=== PATIENT | female | born 1990 | race Hispanic/Latino ===

== ENCOUNTER 2018-04-05 21:04 | Emergency (ER) | payer BC ==
[2018-04-05 21:14] VITALS: RESP 16; O2SAT 99
--- NOTE | 2018-04-05 22:29 | ED PDOC ---
HPI: Chest Pain Time Seen by Provider: 04/05/18 21:30 Chief Complaint (Nursing): Chest Pain Chief Complaint (Provider): Chest Pain History Per: Patient History/Exam Limitations: no limitations Onset/Duration Of Symptoms: Days Current Symptoms Are (Timing): Still Present Additional Complaint(s): 28 year old female with no significant past medical history reports to the ED complaining of mid-sternal chest pain. Patient admits she has been on OCPs for the past 8 years and went on a road trip recently to [place] last weekend. Patient reports that pain is only present during deep inspirations. In addition , patient reports of intermittent fast heart rate. Otherwise: (-) radiation, (- ) diaphoresis, (-) dyspnea, (+) pleuritic component, (-) ripping or tearing quality, (-) positional component, (-) exertional component, (-) dizziness, (-) syncope, (-) nausea, (-) vomiting, (-) leg swelling/pain, (-) neuro deficits, (- ) fever, (-) cough, (-) history of DVT. Past Medical History Reviewed: Historical Data, Nursing Documentation, Vital Signs Vital Signs: Last Vital Signs Temp 98.4 F 04/05/18 23:48 Pulse 87 04/05/18 23:48 Resp 16 04/05/18 23:48 BP 125/78 04/05/18 23:48 Pulse Ox 99 04/06/18 02:13 - Surgical History Surgical History: No Surg Hx - Family History Family History: States: Unknown Family Hx - Allergies Allergies/Adverse Reactions: Allergies Allergy/AdvReac Type Severity Reaction Status Date / Time No Known Allergies Allergy Verified 04/05/18 21:17 Wells Criteria for PE - Wells Criteria for Pulmonary Embolism Clinical Signs and Symptoms of DVT: Yes P.E is #1 Diagnosis, or Equally Likely: Yes Heart Rate >100: Yes Immobilization at least 3 days;Surgery previous 4 weeks: Yes Previous, objectively diagnosed PE or DVT: No Hemoptysis: No Malignancy w/treatment within 6 months, or palliative: No Total Score: 7.0 Review of Systems ROS Statement: Except As Marked, All Systems Reviewed And Found Negative Constitutional: Negative for: Fever Cardiovascular: Positive for: Chest Pain (mid-sternal ), Other (fast heart rate) Respiratory: Positive for: Cough Gastrointestinal: Negative for: Nausea, Vomiting Musculoskeletal: Negative for: Leg Pain Neurological: Negative for: Dizziness Physical Exam - Reviewed Nursing Documentation Reviewed: Yes Vital Signs Reviewed: Yes - Physical Exam Appears: Positive for: Well, Non-toxic, No Acute Distress Head Exam: Positive for: ATRAUMATIC, NORMAL INSPECTION, NORMOCEPHALIC Skin: Positive for: Normal Color, Warm. Negative for: Rash Eye Exam: Positive for: EOMI, Normal appearance, PERRL ENT: Positive for: Normal ENT Inspection Neck: Positive for: Normal, Painless ROM Cardiovascular/Chest: Positive for: Regular Rate, Rhythm (+tachycardic) Respiratory: Positive for: Normal Breath Sounds. Negative for: Rales, Rhonchi, Wheezing Gastrointestinal/Abdominal: Positive for: Normal Exam, Soft. Negative for: Tenderness Back: Positive for: Normal Inspection Extremity: Positive for: Normal ROM, Capillary Refill (<2 sec). Negative for: Tenderness, Pedal Edema, Calf Tenderness, Deformity, Swelling Neurologic/Psych: Positive for: Alert, ceramic coater II-XII, Oriented, Gait (steady). Negative for: Motor/Sensory Deficits, Facial Droop - Laboratory Results Result Diagrams: 04/05/18 22:35 04/05/18 22:35 - ECG O2 Sat by Pulse Oximetry: 99 (RA) Pulse Ox Interpretation: Normal Medical Decision Making Medical Decision Making: Time: 2151 Impression: Rule out PE Plan: -- EKG -- CMP -- Troponin I -- ED Urine Preg -- CBC with differentials -- D Dimer -- PTT -- Prothrombin Time -- CXR Two Views -- Fur Plucker -- IV Insertion Labs reviewed and wnl including (-) trop and (-) d-dimer. CXR : NAD, as read by SARAH. EKG : St at 105 bpm, (-) acute ST changes, as read by SARAH. On re-evaluation, patient is resting comfortably in bed in no acute distress. Reports no SOB at this time. VS T 98.4 P 87 BP 125/78 R 16 O2 sat 99%RA. Considering Well's score, despite (-) d-dimer, will order CTA chest ot r/o PE. CTA chest : FINDINGS: There is residual thymic tissue in the anterior mediastinum. No pulmonary embolism. No aortic dissection or aneurysm. No pleural or pericardial effussions. No pulmonary consolidation. IMPRESSION: No acute findings. Dictated and Authenticated by: Luly Molina MD 04/06/2018 1:05 AM Eastern Time ([place] & [place]) On re-evaluation, resting in bed in no acute distress, denies any SOB or chest pain at this time. Diagnostic results d/w the patient in great detail. Patient made aware that PE was ruled out. Based on history, exam and diagnostic results, plan will be for outpatient follow up. Patient instructed to follow-up with pmd in 1-2 days without fail. Return to the emergency room at any time for any new or worsening symptoms. Patient states she fully agrees with and understands discharge instructions. States that she agrees with the plan and disposition. Verbalized and repeated discharge instructions and plan. I have given the patient opportunity to ask any additional questions. Scribe Attestation: Documented by Levi So, acting as a scribe for Evie Herrera PA-C. Provider Scribe Attestation: All medical record entries made by the Scribe were at my direction and personally dictated by me. I have reviewed the chart and agree that the record accurately reflects my personal performance of the history, physical exam, medical decision making, and the department course for this patient. I have also personally directed, reviewed, and agree with the discharge instructions and disposition. Disposition - Clinical Impression Clinical Impression: Chest pain - Patient ED Disposition Is Patient to be Admitted: No Counseled Patient/Family Regarding: Studies Performed, Diagnosis, Need For Followup - Disposition Disposition: Routine/Home Disposition Time: 02:00 Condition: STABLE Additional Instructions: Thank you for letting us take care of you today. You were treated for chest pain , PE was ruled out. The emergency medical care you received today was directed at your acute symptoms. Return to the Emergency Department if your symptoms worsen, do not improve, or if you have any other problems. Please contact your doctor in 2 days for re-evaluation and follow up. Bring any paperwork you were given at discharge with you along with any medications you are taking to your follow up visit. Our treatment cannot replace ongoing medical care by a primary care provider (PCP) outside of the emergency department. Thank you for allowing the [facility] team to be part of your care today. 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
[2018-04-05 22:49] LABS: BASO % 0.5 % (0.0-2.0); EOS # 0.2 K/uL (0.0-0.7); EOS % 3.3 % (0.0-4.0); HEMOGLOBIN 12.6 g/dL (12.0-16.0); LYMPH % 41.9 % (20.0-40.0); MEAN CELL VOLUME 87.2 fl (81.0-99.0); MEAN CORPUSCULAR HEMOGLOBIN 29.4 pg (27.0-31.0); MEAN CORPUSCULAR HGB CONC 33.7 g/dL (33.0-37.0); MEAN PLATELET VOLUME 9.1 fl (7.2-11.7); MONO # 0.6 K/uL (0.0-0.8); MONO % 9.1 % (0.0-10.0); NEUT # 3.2 K/uL (1.8-7.0); NEUT % 45.2 % (50.0-75.0); NRBC % 0.1 % (0.0-0.0); RBC 4.29 Mil/uL (3.80-5.20)
[2018-04-05 22:55] LABS: ALB/GLOB RATIO 1.2 (1.0-2.1); ALT/SGPT 33 U/L (9-52); AST/SGOT 22 U/L (14-36); BLOOD UREA NITROGEN 14 mg/dl (7-17); CALCIUM 9.3 mg/dL (8.4-10.2); GFR AFRICAN-AMERICAN > 60; GFR NON-AFRICAN AMERICAN > 60
[2018-04-05 23:12] LABS: INR 0.9 (0.9-1.2); PROTHROMBIN TIME 9.7 Seconds (9.8-13.1)
[2018-04-05 23:52] VITALS: BP 125/78; PULSE 87; TEMP 98.4
[2018-04-06] MEDS ORDERED: Iodixanol 320 MG/ML 100 ML BOTTLE IV ONE (00:29)
[2018-04-06] MEDS ORDERED: Sodium Chloride 0.9% 50 ML IV ONE (00:29)
--- NOTE | 2018-04-06 01:05 | CT ---
EXAM: CT Angiography Chest With Intravenous Contrast EXAM DATE/TIME: 04/06/2018 12:11 AM CLINICAL HISTORY: 28 years old, female; Pain; Chest pain; Additional info: Chest pain, R/O pe TECHNIQUE: Axial computed tomographic angiography images of the chest with intravenous contrast using pulmonary embolism protocol. All CT scans at this facility use one or more dose reduction techniques, viz.: automated exposure control; ma/kV adjustment per patient size (including targeted exams where dose is matched to indication; i.e. head); or iterative reconstruction technique. MIP reconstructed images were created and reviewed. Coronal and sagittal reformatted images were created and reviewed. CONTRAST: 95 mL of VISI 320 administered intravenously. COMPARISON: No relevant prior studies available. FINDINGS: There is residual thymic tissue in the anterior mediastinum. No pulmonary embolism. No aortic dissection or aneurysm. No pleural or pericardial effussions. No pulmonary consolidation. IMPRESSION: No acute findings.
--- NOTE | 2018-04-06 09:46 | RAD ---
HISTORY: chest pain COMPARISON: No prior. TECHNIQUE: Chest PA and lateral FINDINGS: LUNGS: No active pulmonary disease. PLEURA: No significant pleural effusion identified. No pneumothorax apparent. CARDIOVASCULAR: Normal. OSSEOUS STRUCTURES: No significant abnormalities. VISUALIZED UPPER ABDOMEN: Normal. OTHER FINDINGS: None. IMPRESSION: No active disease.
== END 2018-04-06 02:22 | disposition home or self-care (01) ==
LOC: H.ER 21:04
DX: R07.89 Other chest pain (principal)
CPT/HCPCS: 71046; 71275; 80053; 81025; 84484; 85025; 85378; 85610; 85730; 99284; Q9967